=== PATIENT | female | born 1960 | race Caucasian/White ===

== ENCOUNTER → 2024-09-27 12:56 | Outpatient (CLI) | payer OTHER, SELFPAY ==
--- NOTE | 2024-09-27 | DI.MRI.S_ITS ---
PROCEDURE: MR LUMBAR SPINE WO CON INDICATIONS: Spondylosis without myelopathy or radiculopathy, lumbar nely TECHNIQUE: Noncontrast sagittal T1 spin echo and T2 fast echo, sagittal STIR, and T2 fast spin echo through the lumbar spine. In cases with scoliosis, additional coronal T2 fast spin echo may be performed. COMPARISON: None. FINDINGS: Image quality: Excellent. Alignment and Curvature: Mild retrolisthesis of L3 on L4 and L4 on L5. Bone Marrow: Marrow is of normal overall signal. No acute vertebral body compression fractures. Spinal Cord: Conus medullaris terminates at the L1 level. Visualized cord demonstrates normal signal and size. Paraspinous Soft Tissues: No paravertebral masses. There appears to be focal dilatation of the left common iliac artery measuring 1.7 cm. T12-L1: Disc desiccation and minimal disc bulge. No central canal or neural foraminal stenosis. L1-L2: Disc desiccation, mild height loss and minimal posterior disc bulge. No central canal or neural foraminal stenosis. L2-L3: Disc desiccation and mild height loss. Minimal disc bulge. Facet arthropathy. No central canal or neural foraminal stenosis. L3-L4: Disc desiccation and mild disc bulge. No central canal or neural foraminal stenosis. L4-L5: Disc desiccation and mild disc bulge. Facet arthropathy and thickening of ligamentum flavum. Mild to moderate central canal stenosis. Bilateral lateral recess stenosis. Mild bilateral neural foraminal stenosis. L5-S1: Disc desiccation and posterior disc bulge. Facet arthropathy and thickening of ligamentum flavum. Mild central canal stenosis. Moderate left and mild right neural foraminal stenosis. IMPRESSION: 1. Multilevel degenerative changes of the lumbar spine as described above. 2. There is [id number] central canal stenosis at L4-5 with narrowing of the bilateral lateral recesses.. 3. Moderate left neural foraminal stenosis at L5-S1. Dictated by: Chucky Longoria M.D. on 09/27/2024 at 14:27 Approved by: Chucky Longoria M.D. on 09/27/2024 at 14:32
== END ==
PROVIDERS: PCP Internal Medicine; Referring Provider Acupuncturist; Visit Provider Acupuncturist
DX: M47.816 Spondylosis without myelopathy or radiculopathy, lumbar region (principal); M47.817 Spondylosis without myelopathy or radiculopathy, lumbosacral region; M48.061 Spinal stenosis, lumbar region without neurogenic claudication; M48.07 Spinal stenosis, lumbosacral region
CPT/HCPCS: 72148